=== PATIENT | male | born 1950 | race Caucasian/White ===

== ENCOUNTER 2023-03-17 05:04 | Observation (INO) ==
--- NOTE | 2023-02-18 10:49 | PAT Medication Instructions ---
Medication Instructions Date of Service February 18, 2023 Home Medications Medication Instructions Recorded oxycodone 5 mg tablet 5 mg PO Q6H PRN pain #10 tabs 12/26/22 tramadol 50 mg tablet 50 mg PO Q6H PRN pain #30 tabs 01/15/23 ibuprofen 200 mg tablet 200 mg PO Q4H PRN Pain oxycodone 5 mg tablet 5 mg PO Q6H PRN pain tramadol 50 mg tablet 50 mg PO Q6H PRN pain guar gum 2 tbsp PO PM omeprazole magnesium 20 mg tablet,delayed release (Prilosec OTC) 20 mg PO QAM ASK your surgeon for instructions ibuprofen 200 mg tablet 200 mg PO Q4H PRN Pain STOP taking 2 weeks before surgery guar gum 2 tbsp PO PM Take morning of surgery With a small sip of water, OTHERWISE NOTHING TO EAT OR DRINK AFTER MIDNIGHT: oxycodone 5 mg tablet 5 mg PO Q6H PRN pain (if needed) tramadol 50 mg tablet 50 mg PO Q6H PRN pain (if needed) omeprazole magnesium 20 mg tablet,delayed release (Prilosec OTC) 20 mg PO QAM Take evening before surgery oxycodone 5 mg tablet 5 mg PO Q6H PRN pain (if needed) tramadol 50 mg tablet 50 mg PO Q6H PRN pain (if needed) Other Notes If you have any questions please call us at [phone] or [phone] or [phone] or [phone]
--- NOTE | 2023-02-19 12:27 | Anesthesiology Consultation ---
Date of Service February 19, 2023 Assessment & Plan (1) Encounter for pre-operative examination: Chart Review Chart Review: Acceptable Risk for Surgery (pending 03/12/23 PCP appt ) and Patient seen in Pre Admission Testing - Awaiting PCP appt 03/12/23 (did write workload to PCP re: HTN, DM, and stomach burning- will await response if patient stable for surgery at PCP appt) - Check BSG AM DOS - Pt is NOT an OPJ candidate Per PAT appt on 02/19/23, no recent illness/disease exposures, illness related symptoms, or recent illness/disease positive tests. Will leave to surgeon's discretion if preop Covid testing needed Lap aria 10/14/22= Done under GA with Grade 2-3 view with ETT #7.5. History Surgery Operation Date: 03/17/23 12:40 Proposed Procedures p Right Anterior Total Hip Arthroplasty - Jackson Lozano, DO Height/Weight Height: 5 ft 10.5 in Weight: 91.172 kg Allergies Allergy/AdvReac Type Severity Reaction Status Date / Time Penicillins Allergy Mild rash, Verified 02/11/23 11:22 stomach pain Medications Home Medications Medication Instructions Recorded Confirmed Last Taken ibuprofen 200 mg tablet 200 mg PO Q4H PRN Pain 12/26/22 02/11/23 12/26/22 oxycodone 5 mg tablet 5 mg PO Q6H PRN pain #10 tabs 12/26/22 02/11/23 Unknown tramadol 50 mg tablet 50 mg PO Q6H PRN pain #30 tabs 01/15/23 02/11/23 Unknown guar gum 2 tbsp PO PM 02/11/23 02/11/23 Unknown omeprazole magnesium 20 mg 20 mg PO QAM 02/11/23 02/11/23 Unknown tablet,delayed release (Prilosec OTC) losartan 50 mg tablet mg QAM 02/19/23 Unknown Past Medical History Medical History (Updated 02/20/23 @ 10:23 by Lorraine Wang PA-C) Arthritis Burning sensation of stomach - since 08/2022, worse with food, coffee, and first thing in the morning (no issues at night)- improves throughout the day. S/p aria- continues with issues - Has been taking NSAIDs routinely for "number of years". No belching, blood in stool, reflux- no GI f/u. No hx of c-scope or EGD - Plans to discuss at new PCP appt 03/12/23 - Pt states burning sensation mild in severity- feels stable enough to undergo surgery DDD (degenerative disc disease), lumbar Diabetes Diet controlled- (declines meds) will be discussing with PCP at 03/12/23 appt Hgb A1C 6.3 at PAT appt 02/19/23 History of renal stone no surgery required- no recent issues Hypertension baseline 160s/80s- restarted Losartan 02/14/23 (only taking x 5 days per 02/19/23 PAT appt) Exercise / Class Metabolic Activity II 4-5 Yardwork/Stairs/Walk up hill (one flight of stairs - no chest pain or SOB ) Past Family History Family History Other No family history of adverse response to anesthesia Past Surgical History Surgical History History of cholecystectomy History of repair of rotator cuff Right History of tooth extraction History of total shoulder replacement right Past Anesthesia History No Hx of Anesthesia Complications and No Family Hx of Anesthesia Complications History of PONV No Hx of PONV and No Hx of Motion Sickness Social History Smoking Status: Former smoker tobacco type: cigarettes Do You Dip or Chew Tobacco: No Smoking End Date: quit at age 19 Hx Alcohol Use: Yes Alcohol type: beer alcohol intake frequency: 0-2 drinks per day (1-2 beers/day) Hx Substance Use: No substance use type: does not use Review of Systems Patient denies chest pain, shortness of breath, dyspnea on exertion, reflux, cough, wheezing, palpitations. No hx of seizures, stroke, [place], apnea/snoring. No hx of blood clots or blood transfusions Physical Exam Vital Signs VITALS BP 164/82 (manually) P 83 TEMP 97.8 SP02 97% RESP 16 Constitutional no acute distress ENMT Mouth: no TMJ clicking Thyromental Distance: > or= 3.5 Finger Breadths (3.5) Mallampati Class: II Permanent top bridge Missing molars Crowns to molars Neck + limited neck extension (mild) Respiratory normal respiratory effort; no respiratory distress Auscultation: lungs clear to auscultation bilaterally; no wheezes Cardiovascular Rate/Rhythm: regular rate and regular rhythm Heart Sounds: no murmur Vessels: no carotid bruit Musculoskeletal Spine: no pain with cervical ROM Extremities: extremities normal to inspection Psychiatric Orientation: alert Lab Results Anesthesia Preop Results Results Anesthesia Widget: WBC 9.37 K/ul (4.8-10.8) 02/19/23 Hgb 14.3 g/dl (14.0-18.0) 02/19/23 Hct 40.8 % (42.0-52.0) L 02/19/23 Plt 276 K/uL (130-400) 02/19/23 Na 135 mmol/L (136-145) L 02/19/23 K 4.9 mmol/L (3.5-5.1) 02/19/23 Cl 102 mmol/L (98-107) 02/19/23 CO2 28 mmol/L (21-32) 02/19/23 BUN 15 mg/dl (6-23) 02/19/23 Creat 0.95 mg/dl (0.6-1.4) 02/19/23 Glucose Level 94 mg/dl (70-99(Fasting)) 02/19/23 PT 10.8 Seconds (9.0-12.0) 02/19/23 PTT 27.6 Seconds (21.0-31.0) 02/19/23 INR 1.0 (0.9-1.1) 02/19/23 HA1c 6.3 % (4.5-5.6) H 02/19/23 Urine Specific [place] 1.012 (1.000-1.030) 12/26/22 Urine Blood Negative (Negative) 12/26/22 Urine Urobilinogen Negative (Negative) 12/26/22 Urine Epithelial Cells (Auto) 10-20 /lpf (0-5) H 12/26/22 Blood Type O Negative 02/19/23 Antibody Screen NEGATIVE 02/19/23 Testing Electrocardiogram Date: 12/26/22 Findings: + ST @ (103bpm ) and + no change from (August 02, 2019 per cardio ) Incomplete RBBB Chest X-Ray Date: 12/26/22 Findings: + NAD FINDINGS: No pneumothorax. No pleural effusions. The lungs are clear. No evid ence for pulmonary edema. Mitral anus calcifications aortic knob calcifications are noted. The heart is normal in size. Distal resorption/resection of the right clavicle. Other Testing Abdomen/Pelvis CT 12/26/22= No acute process within the abdomen or pelvis. Expected findings following cholecystectomy. No biliary ductal dilatation. No operative bed fluid collection.
[2023-03-17] MEDS ORDERED: LR 60ML/HR IV SCH (06:00)
[2023-03-17] MEDS ORDERED: GABAPENTIN 300 MG CAP PO SCH (06:00)
[2023-03-17] MEDS ORDERED: ceFAZolin 2000MG 2,000 MG/15 ML SYR IV SCH (06:00)
[2023-03-17] MEDS ORDERED: LR 500ML BOLUS, THEN 15ML/HR IV SCH (06:00)
[2023-03-17] MEDS ORDERED: ORTHO JOINT MIX INFIL SCH (06:00)
[2023-03-17] MEDS ORDERED: ACETAMINOPHEN 500 MG TAB PO SCH (06:00)
[2023-03-17] MEDS ORDERED: TRANEXAMIC ACID 1,000 MG **IV Intra-op IV SCH (06:00)
[2023-03-17] MEDS ORDERED: dexAMETHasone 4 MG TAB PO SCH (06:00)
[2023-03-17] MEDS ORDERED: TRANEXAMIC ACID 1,000 MG **IV Pre-op IV SCH (06:00)
[2023-03-17] MEDS ORDERED: FAMOTIDINE 20 MG TAB PO SCH (06:00)
--- NOTE | 2023-03-17 06:11 | History & Physical Bridge Note ---
Date of Service March 17, 2023 History & Physical Bridge Note I have examined the patient, reviewed the History & Physical and in the interval since the performance of the History & Physical I have noted the following changes of clinical significance: no changes noted
[2023-03-17] MEDS ORDERED: MIDAZOLAM HCL 1 MG/ML 2ML VIAL ONE (06:17)
[2023-03-17] MEDS ORDERED: BUPIVACAINE 0.5 % 5 MG/1 ML PF 10ML VIAL ONE (06:20)
[2023-03-17] MEDS ORDERED: ORTHO JOINT ANESTHETIC ONE (06:29)
[2023-03-17] MEDS ORDERED: ePHEDrine sulfate 50 MG/ML AMP IV PRN (06:35)
[2023-03-17] MEDS ORDERED: ATROPINE SULFATE 0.1 MG/ML 10ML SYR IV PRN (06:35)
[2023-03-17] MEDS ORDERED: PROMETHAZINE HCL 12.5 MG in SODIUM CHLORIDE 0.9% 50 ML IV PRN (06:35)
[2023-03-17] MEDS ORDERED: fentaNYL citrate PF 100 MCG/2 ML VIAL IV PRN (06:35)
[2023-03-17] MEDS ORDERED: GLYCOPYRROLATE 0.2 MG/ML VIAL ONE (07:13)
[2023-03-17] MEDS ORDERED: PROPOFOL IV EMULSION 10 MG/ML 20 ML VIAL IV ONE ×2 (07:13→07:58)
[2023-03-17] MEDS ORDERED: ONDANSETRON INJ 2 MG/ML 2 ML VIAL ONE (07:13)
[2023-03-17] MEDS ORDERED: KETOROLAC 30 MG/ML VIAL ONE (07:13)
[2023-03-17] MEDS ORDERED: LIDOCAINE 2% 2 ML VIAL/AMP(20MG/ML) INFIL ONE (07:13)
[2023-03-17] MEDS ORDERED: ePHEDrine sulfate 50 MG/5 ML SYR ONE (07:57)
--- NOTE | 2023-03-17 08:06 | Operative Report ---
PG Post Operative Report Pre & Post Diagnosis Operation Date: 03/17/23 07:00 Pre-Op Diagnosis: Degenerative Joint Disease Right Hip Post-Op Diagnosis: Degenerative Joint Disease Right Hip I identified the patient and participated in the time-out.: Yes Procedure Operation Date: 03/17/23 07:00 Actual Procedures p Right Anterior Total Hip Arthroplasty, Uncemented(Right) - Jackson Lozano DO Surgeon Jackson Lozano DO Screw Cutter Jackson Man PA-C Estimated Blood Loss 100 Findings Consistent with Post-Op Diagnosis Specimens Right femoral head Description of Procedure Implants used I used a ZimmerBiomet total hip arthroplasty system with a size 6 high offset Avenir Complete stem, a 52 mm G7 cup with a 25mm screw, an E1 polyethylene liner, a 36 mm ceramic head with a 0 neck. Amari arrived at the hospital for the above procedure. He was seen in the preoperative holding area and the operative extremity was identified and signed. He was given a spinal anesthetic, a preoperative antibiotic, and TXA. He was then taken back to the operating room and laid on the table in the supine position. He was given basic sedation. The operative leg was secured to a Puristst leg positioner. The hip was then prepped and draped in sterile fashion. A timeout was done and the patient and the operative extremity was properly identified. An anterior approach was used. Dissection was taken down through the fascia and the tensor muscle belly was retracted laterally and the rectus was retracted medially. The circumflex vessels were identified and ligated. The capsule was then incised and tagged for later repair. The femoral neck was then cut and the femoral head was removed. The acetabulum was exposed. Time was spent doing a complete circumferential labral release. Sequential reaming of the acetabulum up to a size 51 reamer was done. Final reamings were done under fluoroscopy to ensure appropriate version. A Biomet 52 mm G7 cup was then impacted into place. A single 25 mm screw was placed. The E1 polyethylene liner was then snapped into place. Surrounding soft tissues were then injected with 100 cc of an orthopedic pain control cocktail. The proximal femur was then exposed. Sequential broaching up to a size 6 broach was done. Off that broach a size 36 head with a 0 neck was trialed. The hip was reduced and fluoroscopic images showed anatomic alignment of the implants in acceptable length. The broach was removed. The final size 6 high offset Avenir Complete stem was then impacted into place. A ceramic 36 mm head with a 0 neck was then impacted onto the stem and the hip was reduced. Final fluoroscopic images showed anatomic alignment of the hip. The capsule was then closed with # 1 Vicryl suture. A dilute betadyne lavage was then done for 3 minutes. The joint was then irrigated with normal saline solution. The fascia was closed with #1 PDS suture. Skin was closed with 2-0 Vicryl, fam, and a Silverlon dressing. He was then transferred to a hospital bed and taken to the post anesthesia care unit in stable condition. He tolerated the procedure well. Jackson Man PA-C, was present for the entire procedure. He was critical for patient positioning, prepping, draping, retraction exposure, wound closure and application of sterile dressing. I attest to the content of the Intraoperative Record and any orders documented therein. Any exceptions are noted below.
--- NOTE | 2023-03-17 08:33 | Fluoroscopy Report ---
FL hip RT 1V CLINICAL HISTORY: RIGHT ANTERIOR BENJAMIN COMPARISON STUDY: Pelvis and right hip radiographs and CT of the abdomen and pelvis December 26, 2022. FLUOROSCOPY TIME: 15 seconds. Ramakrishna r: 1.0073 mGy FLUOROSCOPIC IMAGES: 1 FINDINGS: Fluoroscopy was provided during total right hip arthroplasty. There is no fracture. There a re no unexpected radiopaque foreign bodies. Acetabular screw is noted. IMPRESSION: Fluoroscopy provided during total right hip arthroplasty. ACT 112: Negative or not required by law. Electronically signed by: Guanako Craig M.D. 03/17/2023 8:32 AM
[2023-03-17] MEDS ORDERED: SODIUM CHLORIDE 0.9% 1,000 ML IV SCH (09:52)
[2023-03-17] MEDS ORDERED: oxyCODONE HCL IR 5 MG TAB (IMMEDIATE RELEASE) PO PRN (09:52)
[2023-03-17] MEDS ORDERED: METOCLOPRAMIDE HCL INJ 5 MG/ML 2 ML VIAL IV PRN (09:52)
[2023-03-17] MEDS ORDERED: HYDROmorphone INJ 0.5 MG/0.5 ML SYR IV PRN (09:52)
[2023-03-17] MEDS ORDERED: NALOXONE HCL 0.4 MG/1 ML VIAL/CARP IV PRN (09:52)
[2023-03-17] MEDS ORDERED: ONDANSETRON INJ 2 MG/ML 2 ML VIAL IV PRN (09:52)
[2023-03-17] MEDS ORDERED: MAGNESIUM HYDROXIDE SUSP 30 ML UDC PO PRN (09:52)
[2023-03-17] MEDS ORDERED: bisacodyL 10 MG SUPP PR PRN (09:52)
--- NOTE | 2023-03-17 09:59 | XRay Report ---
XR hip 1V RT w pelvis CLINICAL HISTORY: IN PACU - Post Surgical TECHNIQUE: 1 view of the right hip and single frontal view of the pelvis were obtained. Comparison: Comparison is made to right hip radiograph 12/26/2022 FINDINGS: Patient is status post total hip arthroplasty with expected postsurgical changes including soft tissu e swelling and subcutaneous emphysema. IMPRESSION: Expected postoperative appearance status post placement of total hip arthroplasty. ACT 112: Negative or not required by law. Electronically signed by: Arturo Camacho M.D. 03/17/2023 9:57 AM
--- NOTE | 2023-03-17 10:25 | Anesthesiology Progress Note ---
Date of Service March 17, 2023 Anesthesia Post Procedure Vital Signs Vital Signs: Temp Pulse Pulse Resp BP Pulse Ox O2 Del Method 03/17/23 10:21 36.5 C 72 16 129/76 99 Room Air 03/17/23 09:52 36.4 C L 67 16 133/75 100 Room Air 03/17/23 09:45 66 16 135/65 99 Room Air 03/17/23 09:35 61 14 127/68 97 Room Air 03/17/23 09:25 65 13 133/61 98 Room Air 03/17/23 09:15 58 L 12 125/65 100 Room Air 03/17/23 09:05 36.4 C L 63 16 137/68 100 Room Air 03/17/23 08:55 73 18 124/65 99 Room Air 03/17/23 08:45 75 16 127/66 100 Oxymask 03/17/23 08:35 82 14 116/63 100 Oxymask 03/17/23 08:28 37 C 85 12 110/58 L 100 Oxymask 03/17/23 05:33 36.7 C 104 H 18 178/99 H 99 Room Air O2 Flow Rate 03/17/23 10:21 03/17/23 09:52 03/17/23 09:45 03/17/23 09:35 03/17/23 09:25 03/17/23 09:15 03/17/23 09:05 03/17/23 08:55 03/17/23 08:45 11 03/17/23 08:35 11 03/17/23 08:28 11 03/17/23 05:33 Pain Intensity Bilateral Lower Back: Pain Intensity: 9 Transfer of Care Handoff Completed per policy Notes Mental Status: alert / awake / arousable Patient Amnestic to Procedure: Yes Nausea / Vomiting: adequately controlled Pain: adequately controlled Airway Patency, RR, SpO2: stable & adequate BP & HR: stable & adequate Hydration State: stable & adequate Anesthetic Complications: no major complications apparent and Pt Satisfied with anesthetic care
[2023-03-17] MEDS: MULTIVITAMIN TAB PO SCH (10:55)
[2023-03-17] MEDS: LOSARTAN POTASSIUM 50 MG TAB PO SCH ×2 (10:56→21:01)
[2023-03-17] MEDS: DOCUSATE SODIUM 100 MG CAP PO SCH ×2 (10:56→21:01)
[2023-03-17] MEDS: ASPIRIN 81 MG ECTAB PO SCH ×2 (10:56→21:01)
[2023-03-17] MEDS: KETOROLAC TROMETHAMINE 15 MG/ML VIAL IV SCH ×2 (13:41→21:02)
[2023-03-17] MEDS: ACETAMINOPHEN 500 MG TAB PO SCH ×2 (13:41→21:01)
[2023-03-17] MEDS: ceFAZolin 2000MG 2,000 MG/15 ML SYR IV SCH ×2 (15:09→22:22)
[2023-03-17] MEDS ORDERED: SENNA 8.6 MG TAB PO SCH (21:00)
[2023-03-18] MEDS ORDERED: COUGH DROP (SUGAR FREE) LOZ 24 LOZ/1 BOX BUCCAL ONE (01:39)
[2023-03-18] MEDS: KETOROLAC TROMETHAMINE 15 MG/ML VIAL IV SCH ×2 (01:40→07:50)
[2023-03-18] MEDS: ACETAMINOPHEN 500 MG TAB PO SCH (05:30)
--- NOTE | 2023-03-18 07:48 | Orthopedic Progress Note ---
Date of Service March 18, 2023 Assessment & Plan (1) Status post right hip replacement: Plan Overall he is doing very well today with not much pain to his right hip. He will be seen by physical therapy today for ambulation and range of motion exercises. He is on aspirin for DVT prophylaxis. He can be discharged home later today. He will follow-up in the orthopedic office in 2 weeks for postoperative care. Subjective . Patient was seen and examined at bedside this morning. Overall he is doing very well without much pain to the right hip. He has been up and ambulating to the bathroom and currently sitting bedside in his chair. He has no complaints. Review of Systems All systems reviewed & are unremarkable except as noted in HPI & below. Physical Exam . On physical exam of the right hip, the dressings were clean, dry, and place. His leg is currently out in full extension in his chair. He has active dorsiflexion and plantarflexion of his right ankle.. Results & Data Results & Data Laboratory Results . Diagnostic Findings . Postoperative x-rays of the right hip show the prosthesis is in anatomical alignment without any evidence of fracture complication or loosening. PG Care Time/CCT Total # of Minutes Spent Total Time Spent with Patient: Total time spent is greater than 50% in coordination of care (as documented) at patient's floor/unit and/or counseling patient: Coding Level of Care Code 33824 Post Operative Follow-Up Diagnoses Status post right hip replacement Z96.641
[2023-03-18] MEDS: LOSARTAN POTASSIUM 50 MG TAB PO SCH (07:49)
[2023-03-18] MEDS: DOCUSATE SODIUM 100 MG CAP PO SCH (07:50)
[2023-03-18] MEDS: MULTIVITAMIN TAB PO SCH (07:50)
[2023-03-18] MEDS: ASPIRIN 81 MG ECTAB PO SCH (07:50)
--- NOTE | 2023-03-18 07:54 | Discharge Summary ---
Date of Service March 18, 2023 Discharge Data Procedures Performed Operation Date: 03/17/23 07:00 Actual Procedures p Right Anterior Total Hip Arthroplasty, Uncemented(Right) - Jackson Lozano DO Hospital Course (1) Status post right hip replacement: On March 17, 2023 Amari arrived at [facility] and underwent a right hip replacement without complications. He had a spinal anesthetic. Postoperatively he was started on aspirin for DVT prophylaxis and transferred to the general orthopedic floor. On postoperative day #1, his vital signs were stable and his pain was well controlled. He was able to participate well with physical therapy doing ambulation and range of motion exercises. He was then discharged home. He will follow-up with lower orthopedics office in 2 weeks for postoperative care. Coding Level of Care Code 93015 IN/OBS DISCH 30 MIN/LESS Diagnoses Status post right hip replacement Z96.641
== END 2023-03-18 10:46 | disposition home health service (06) ==
LOC: ASU 05:04 → 3E 05:04